=== PATIENT | female | born 1960 | race Caucasian/White ===

== ENCOUNTER 2019-09-29 13:24 | Emergency (ER) | payer OTHER, SELFPAY ==
[2019-09-29 13:29] VITALS: BP 156/87; PULSE 64; RESP 18; TEMP 36.1; O2SAT 97
--- NOTE | 2019-09-29 13:41 | ED.GENADUL_ITS ---
Discharge Plan Disposition Patient Disposition: HOME Condition: Stable Discharge Details Chief Complaint: GenMedical Clinical Impression: Mass of palm Primary Care Provider: Miranda Rae ED Provider: Raul Romeo Home Meds and New Rx's Prescriptions: Continued atenolol 25 mg Tablet 25 mg PO DAILY RF: 0 multivitamin Tablet,Chewable 1 tab PO DAILY RF: 0 Discharge Instructions Additional Instructions: We will refer you for follow-up in orthopedic clinic. Please call the office at [phone] for an appointment time. Continue your regular medications. Return to the ER if you develop a fever, rapid swelling of the hand, or any other acute concern. Medical Decision Making 59-year-old female presents to the emergency department with 4 months of slow growing left hand palmar mass overlying the flexor tendon of the ring finger. Consider fibrous tendon sheath mass, ganglion cyst, must exclude other soft tissue mass of the hand. Screening x-ray obtained. No evidence of underlying bony mass or abnormality. I do feel she merits follow-up in orthopedic clinic for further delineation of the etiology of what is likely a tendon sheath growth. She understands plan for outpatient follow-up & consultation. HPI General Mode of arrival: ambulatory . Date/Time Provider Initiated Documentation: 09/29/19 13:24 . Limitations to Documentation: no limitations . Information obtained by: patient . History of Present Illness 59 year old F presents to the emergency department with the chief complaint of Left hand volar mass x4 months, described as mild, Quality is described as constant, and is localized to the left and upper extremity. Patient reports no radiation. Patient started experiencing this month(s) and it has been constant. No relieving factors improve symptom(s), No exacerbating factors reported . Patient notes other (No trauma); denies fever/chills and rash. Patient did receive the following treatments prior to arrival, none Related Data Home Medications Medication Instructions Recorded Confirmed atenolol 25 mg PO DAILY 09/29/19 09/29/19 multivitamin 1 tab PO DAILY 09/29/19 09/29/19 Allergies Allergy/AdvReac Type Severity Reaction Status Date / Time Penicillins Allergy Skin Rash Unverified 09/29/19 13:33 General Stated Complaint: GenMedical DONNIE: 4 Review of Systems Narrative: No fever, rash, no trauma. PFSH Social History Smoking/Tobacco Use Status: Never Alcohol Intake: current Alcohol Intake frequency: holidays/special occasions only Drug use: Never Substance use type: does not use Do you feel safe at home: Yes Do you feel safe in your relationship?: Yes Exam Narrative Exam Narrative: GEN: awake, alert, oriented 3. Pleasant, well groomed, interactive. HEAD: Normocephalic, atraumatic Extremity: Left hand palmar surface along the flexor tendon of the ring finger has a palpable mass. It is tender to palpation and causes flexion of the fingers. Patient's motor function is normal including normal ability to make the okay sign, cross long finger over index, touch thumb to pinky. Normal sensation throughout. Distal capillary refill is less than 2 seconds and on the affected extremity two-point discrimination is intact in the distal portions of all fingers at 1 cm. Neuro: Grossly normal neurologic exam, conversant, interactive. Psych: Speech fluent, thoughts congruent, affect normal Course Vital Signs Vital signs: Vital Signs Temperature 36.1 C L 09/29/19 13:29 Pulse 64 09/29/19 13:29 Respiratory Rate 18 09/29/19 13:29 Blood Pressure 156/87 H 09/29/19 13:29 Pulse Oximetry 97 09/29/19 13:29 Temperature 36.1 C L 09/29/19 13:29 Pulse 64 09/29/19 13:29 Respiratory Rate 18 09/29/19 13:29 Respiratory Effort Non-Labored 09/29/19 13:34 Blood Pressure 156/87 H 09/29/19 13:29 Blood Pressure Position Sitting 09/29/19 13:29 Pulse Oximetry 97 09/29/19 13:29 Oxygen Delivery Method Room Air 09/29/19 13:29 Oxygen Flow Rate 0 09/29/19 13:29 Pain Level 8 09/29/19 13:29
--- NOTE | 2019-09-29 13:45 | DI.RAD_ITS ---
EXAM: XR HAND RT COMPLETE INDICATION: flexor tendon mass. COMPARISON: No exams were available for comparison TECHNIQUE: 2D digital imaging was performed. FINDINGS: No fracture or dislocation is seen. Rings are noted on on the 3rd and 4th fingers. There is no evid ence bony destruction. No mass is visible. IMPRESSION: Negative right hand. DATA REPOSITORY: RADIATION DOSE DELIVERED:
--- NOTE | 2019-09-29 15:28 | DI.VRAD_ITS ---
PROCEDURE INFORMATION: Exam: XR Left Hand Exam date and time: 09/29/2019 1:50 PM Age: 59 years old Clinical indication: Mass or lump; Hand and other: Flexor tendon mass; TECHNIQUE: Imaging protocol: XR Left hand. Views: 3 or more views. COMPARISON: No relevant prior studies available. FINDINGS: Bones/joints: No significant bony or articular abnormality is identified. Soft tissues: The soft tissues appear grossly unremarkable. IMPRESSION: Unremarkable radiographic appearance of the left hand. May consider MRI to evaluate for soft tissue mass. Dictated and Authenticated by: Alex Sanford MD. Ordering:LILLY Carter MD
== END 2019-09-29 14:22 | disposition home or self-care (01) ==
LOC: ER 14:12
PROVIDERS: Emergency Provider Emergency Medicine; PCP Nurse Practitioner
DX: R22.31 Localized swelling, mass and lump, right upper limb (principal)
CPT/HCPCS: 99283; 73130

== ENCOUNTER 2020-09-02 03:40 | Outpatient (CLI) | payer OTHER, SELFPAY ==
[2020-09-02 13:08] LABS: CREATININE 0.7 mg/dL (0.55-1.02); Calculated LDL 118 mg/dL (<100); Cholesterol 200 mg/dL (<200); HDL Cholesterol 67 mg/dL (40-60); Potassium 4.2 mmol/L (3.5-5.1); Triglyceride 79 mg/dL (<150)
[2020-09-02 13:21] LABS: Hemoglobin A1C 5.4 % (<5.7)
== END 2020-09-02 03:41 | disposition home or self-care (01) ==
LOC: LOS 03:40
PROVIDERS: PCP Nurse Practitioner; Visit Provider Nurse Practitioner
DX: I10 Essential (primary) hypertension (principal); Z13.1 Encounter for screening for diabetes mellitus; Z13.6 Encounter for screening for cardiovascular disorders
CPT/HCPCS: 36415; 80061; 82565; 83036; 84132

== ENCOUNTER 2020-12-02 04:14 | Outpatient (CLI) | payer OTHER, SELFPAY ==
[2020-12-02 11:39] LABS: Source Nasal/Nares
[2020-12-02 18:49] LABS: COVID-19 PCR Negative (Negative)
== END 2020-12-02 04:15 | disposition home or self-care (01) ==
LOC: LBO 04:14
PROVIDERS: PCP Nurse Practitioner; Visit Provider Surgery
DX: Z20.822 Contact with and (suspected) exposure to COVID-19 (principal); Z01.818 Encounter for other preprocedural examination
CPT/HCPCS: 87635

== ENCOUNTER 2020-12-04 12:35 | Day surgery (SDC) | payer OTHER, SELFPAY ==
--- NOTE | 2020-12-04 12:21 | PDOC.DSDIS_ITS ---
Discharge Plan Disposition Patient Disposition: HOME Condition: Good Discharge Details Reason For Visit: colon scope Attending Provider: Bri Hung Primary Care Provider: Miranda Rae Home Meds and New Rx's Prescriptions: Continued lisinopril 20 mg tablet 20 mg PO DAILY Qty: 90 RF: 4 multivitamin Tablet,Chewable 1 tab PO DAILY RF: 0 Discontinued polyethylene glycol 3350 17 gram/dose powder 238 g PO ONCE Qty: 238 RF: 0 bisacodyl [Dulcolax (bisacodyl)] 5 mg tablet,delayed release (DR/EC) 5 mg PO ONCE Qty: 4 RF: 0 Discharge Instructions Additional Instructions: [facility] Colonoscopy Post- Op Instructions Instructions for Everyone who is given Anesthesia: For your safety, please do the following for the next twenty-four (24) hours: *Do Not operate a motor vehicle (car, truck, motorcycle, etc.) *Do Not drink alcoholic beverages or use any recreational drugs for the first 24 hours or while taking pain medications. The medications in your body may have a reaction that can be dangerous. *Do Not make any important decisions or sign any important papers. Findings: 4cm rectal mass-biopsy pending. Expect to have some bleeding. If you are having more bleeding than w/ a period or passing clots larger than your fist- please got to the ER. Avoid aspirin or ibuprofen/Naprosyn. Tylenol is ok. Follow up: Dr. Hung 3:30pm [facility] 1. No lifting over 20 pounds or strenuous activity for the first 24 hours after your procedure. After 24 hours there are no restrictions on your activity but you may feel fatigued for a few days. 2. After you arrive home you may have a light meal and return to your normal diet as you can tolerate it without feeling sick to your stomach. 3. You may have a bloated, gaseous feeling in your belly (abdomen) after a colonoscopy. Passing gas and belching will help. Walking or lying down on your left side with your knees flexed may relieve the discomfort. Call the office at [phone] (Office) or [phone] (Hospital) right away if you notice any of the following: a.Vomiting of blood or ?coffee ground stools?. b.Rectal bleeding 1Tbsp, blood clots or continuous bleeding. c.Severe belly (abdominal) pain. d.A hard distended belly (abdomen) and an inability to pass gas. 4. Please don?t expect to have a normal BM (bowel movement) for 2-3 days after your procedure. 5. If there are questions regarding the findings of your procedure, please contact your doctor 6. If you are unable to contact your doctor with a problem, contact the hospital at [phone]. 7. Continue all your regular medications unless directed otherwise. I understand the above instructions and have no questions. Signature of Patient or Adult Escort Name of Responsible Adult Escort Signature of Nurse Date/Time Activity:: as above Diet:: as above Discharge Orders Discharge Orders: Discharge Order (Routine); Ordered 12/03/20 Ordered By: Bri Hung DS: Diagnosis Discharge Diagnosis (1) Adenomatous polyps: Status: Acute (2) Rectal mass: Status: Acute
--- NOTE | 2020-12-04 12:25 | W.COLOREPORT ---
Date of service: 12/04/20 Time of Service: 12:25 Colonoscopy Report Date of procedure: 12/04/20 Pre-op diagnosis general: A. polyps Surgeon: Bri Hung Anesthesia Type: General:No Airway Complications: None Disposition: no change Prep: Miralax/Dulcolax Procedure Description: After informed consent was obtained the patient was taken to the procedure room and placed in a left decubitous position. Monitors were applied and a time out was done. The patients name, date of , procedure, allergies to medications and metal in their body was reviewed. The patient was then sedated. Once sedated and comfortable a rectal exam was done. External exam was normal. Internal exam revealed a normal sphincter tone and no palpable masses. The scope was then introduced and retrofelexed. No internal hemorrhoids were identified. The scope was then advanced to the cecum w/out difficulty. The TI and appendiceal orifice were identified. The prep was good. The scope was then slowly retracted over 20 minutes back into the rectum. There is a low lying mass at 4cm. It is about 4x2cm. Multiple bx were taken and fulgeration was attempted. I was not able to remove the lesion in its entirety. Gelfoam was palced. It dose bleed quite readily. The scope was removed and the patient was woken up and taken back to Same day surgery in stable condition. The patient tolerated the procedure well and there were no immediate complications. Follow up: The patient should follow up
[2020-12-04 12:50] VITALS: BP 179/90; PULSE 103; RESP 20; TEMP 36.5; O2SAT 99
[2020-12-04] MEDS: Lactated Ringers 1,000 ML 80 ML IV (13:01)
--- NOTE | 2020-12-04 13:06 | W.ANESPRE ---
General Info Date of Service Date Performed: 12/04/20 Height: 5 ft 2 in Weight: 87.5 kg Body Mass Index (BMI): 35.2 Surgical Procedure: Operation Date: 12/04/20 13:50 Proposed Procedures Side Surgeon p Saman Hung DO Meds Allergies and Home Medications Allergies Allergy/AdvReac Type Severity Reaction Status Date / Time Penicillins Allergy Intermediate Skin Rash Unverified 12/04/20 12:55 Home Medication Medication Instructions Recorded multivitamin 1 tab PO DAILY 09/29/19 lisinopril 20 mg tablet 20 mg PO DAILY #90 tab 09/11/20 bisacodyl 5 mg tablet,delayed 5 mg PO ONCE #4 tab 11/20/20 release Current Visit Medications: Current Medications Generic Name Dose Route Start Last Admin Trade Name Freq PRN Reason Stop Dose Admin Ringer's Solution 1,000 mls @ 80 mls/hr 12/04/20 06:00 12/04/20 13:01 IV 01/02/21 23:59 80 mls/hr INFUSION JEY Administration IV Miscellaneous Supplies 1 each 12/04/20 06:00 Iv Access IV 01/02/21 23:59 DIRECTED JEY Sodium Chloride 0 ml 12/04/20 06:00 Normal Saline Flush 10 Ml Syr IV 01/02/21 23:59 PRN PRN Sodium Chloride 0 ml 12/04/20 06:00 Normal Saline 10 Ml Vial IJ 01/02/21 23:59 DIRECTED PRN Sterile Water 0 ml 12/04/20 06:00 Water,Injection,Sterile 10 Ml Vial IJ 01/02/21 23:59 DIRECTED PRN PFSH Active Problems Active Problems: Problem Status Onset Code Adenomatous polyps D36.9 Difficulty swallowing R13.10 Situational depression Essential (primary) hypertension I10 Colon polyp K63.5 Left carpal tunnel syndrome G56.02 Dupuytren's contracture of left hand M72.0 Medical History Medical History Hepatitis C treated - virus free ? 2018 Surgical History Surgical History H/O colonoscopy H/O eye surgery H/O tubal ligation History of liver biopsy Tobacco Smoking/Tobacco Use Status: Never Passive smoking exposure: Yes Second hand exposure: Yes Alcohol Alcohol Intake: current Alcohol intake frequency: holidays/special occasions only Alcohol type: beer and wine Substance Use Substance use: Never Substance use type: does not use Vital Signs and Lab Results Vital Signs Most Recent Vital Signs in EMR: Most Recent Vital Signs Temp Pulse Resp BP Pulse Ox 36.5 C 103 H 20 179/90 H 99 12/04/20 12:50 12/04/20 12:50 12/04/20 12:50 12/04/20 12:50 12/04/20 12:50 Lab Results Blood Type / Crossmatch: No Data to Display Complete Blood Count: No Data to Display Complete Metabolic Panel: Potassium Level 4.2 mmol/L (3.5-5.1) 09/02/20 08:04 09/02/20 Creatinine 0.7 mg/dL (0.55-1.02) 09/02/20 08:04 09/02/20 Hemoglobin A1c 5.4 % (<5.7) 09/02/20 08:04 09/02/20 Liver Function Panel: No Data to Display Coagulation Panel: No Data to Display Cardiac Panel: No Data to Display Arterial Blood Gas: No Data to Display Venous Blood Gas: No Data to Display Pancreas Panel: No Data to Display Thyroid Panel: No Data to Display Infectious Disease: Coronavirus (COVID-19)(PCR) Negative (Negative) 12/02/20 11:09 12/02/20 Coronavirus 2019 Source Nasal/nares 12/02/20 11:09 12/02/20 Blood Cultures: No Data to Display Toxicology Panel: No Data to Display Anesthesia Assessment and Plan Anesthesia History Personal History: No History of Anesthesia Complications Family History: Other (Daughter had severe reaction to general anesthesia 2006 for Tubal ligation) Exercise Tolerance Exercise Tolerance: Metabolic Equivalents>4 Pertinent Negatives Pertinent Negatives: No Symptoms of GERD, No Major Cardiovascular Symptoms or Complaints, No Major Pulmonary Symptoms or Complaints and No History of CVA/TIA Cardiac & Pulmonary Exam Cardiac Exam: Normal S1/S2 Heart Sounds Pulmonary Exam: Clear Bilateral Breath Sounds Airway Exam Known Difficult Airway: No Mallampati Class: 2 Mouth Opening: Normal (> 3cm) Thyromental Distance: Greater than 3 cm Neck Range of Motion: Full ROM Neck Circumference: Normal Teeth Condition: Normal Dentition and Removable Dentures/Plates Upper ASA Classification ASA Score: ASA 2 Emergency Case?: No NPO Status NPO Status: NPO Clears >2 hours, Solids >8 hours Anesthesia Plan Anesthesia Technique: General Anesthesia Airway Planned: Natural Airway Monitors Used: Standard Monitors
[2020-12-04 13:12] VITALS: BMI 35.2
--- NOTE | 2020-12-04 13:40 | BOWEL_PTH ---
PATIENT: Amalia Barker LOC: [facility] U#:[id number] AGE/SX: 60/F ROOM: RE12/04/[address]: Bri Hung : 1960 BED: DIS: 12/04/2020 SPEC #: [id number] RECD: 12/04/20 16:56 STATUS: GABRIELLE RE #: [id number] REX: 12/04/20 13:[address]: Bri Hung DEPT: Surgical Specimen RECD BY: Selene Dceker ENTERED: 12/04/20 16:56 SP TYPE: Bowel OTHR DR: Miranda Rae, PhD HOT HEADER OPERATOR Tissues: 1 - BIOPSY BOWEL Procedures: GROSS AND MICRO LEVEL 4 Comments: [id number]
[2020-12-04 13:47] VITALS: BP 144/91; PULSE 75; RESP 18; TEMP 36; O2SAT 96
[2020-12-04] MEDS: Gelatin SPONGE 12-7 MM PKT 1 EACH TP (14:00)
[2020-12-04 14:05] VITALS: BP 143/77; PULSE 87; RESP 16; TEMP 36.7; O2SAT 100
--- NOTE | 2020-12-04 14:06 | W.ANESPOSTOP ---
Postoperative Evaluation Date, Time and Location Date Performed: 12/04/20 Time Performed: 14:06 Patient Location: Day Surgery Unit Vital Signs Most Recent Imported Vital Signs: Most Recent Vital Signs Temp Pulse Resp BP Pulse Ox 36.5 C 103 H 20 179/90 H 99 12/04/20 12:50 12/04/20 12:50 12/04/20 12:50 12/04/20 12:50 12/04/20 12:50 Most Recent Manually Entered Vital Signs: Adult Blood Pressure: 143/77 Heart Rate: 84 Respirations: 16 Oxygen Saturation (%): 98 Temperature (C): 36.7 C Pain Score (0-10 Scale): 0 Pain Score Most Recent Pain Score: Most Recent Pain Score Pain Level 0 12/04/20 12:50 Assessment Mental Status: Awake (Alert & Oriented to Patient Baseline) Airway and Respiratory Function: Patent airway with normal (patient baseline) respiratory exam Cardiovascular Function: Hemodynamically Stable Hydration Status: Adequately Hydrated Nausea & Vomiting: No Nausea or Vomiting Pain: Pt. Denies Any Pain Peripheral Nerve Block: Patient did not receive a nerve block
[2020-12-04 14:07] VITALS: BP 143/77; PULSE 84; RESP 16; TEMPC 36.7; O2SAT 98
[2020-12-04 14:36] VITALS: BP 172/93; PULSE 73; RESP 16; TEMP 36.4; O2SAT 100
[2020-12-04 14:40] LABS: Abs Immature Grans 0.01 10^3/uL (0.0-0.06); Absolute Basophil Count 0.02 10^3/uL (0.0-0.2); Absolute Lymphocyte Count 1.55 10^3/uL (1.2-3.4); Absolute Monocyte Count 0.39 10^3/uL (0.1-0.8); Absolute Neutrophil Count 3.76 10^3/uL (1.2-6.7); Basophils % 0.3; Eosinophils % 1.7; HCT 38.4 % (36.0-46.0); HGB 13.1 g/dL (11.2-15.7); Immature Grans % 0.2; Lymphocytes % 26.6; MCH 29.7 pg (27.0-33.0); MCHC 34.1 % (32.0-36.0); MCV 87.1 fL (80-95); MPV 9.2 fL (8.0-11.0); Monocytes % 6.7; Neutrophils % 64.5; Nucleated RBC 0 %; Platelet Count 200 10^3/uL (130-400); RBC 4.41 10^6/uL (3.93-5.22); RDW 12.2 % (11.7-14.6); RDW-SD 39.4 fL; WBC 5.83 10^3/uL (4.4-10.8)
[2020-12-04 14:56] LABS: Prothrombin Time 10.2 sec (9.3-11.0)
[2020-12-04 15:01] LABS: ALT 29 U/L (14-59); AST 33 U/L (15-37); Alkaline Phosphatase 51 U/L (46-116); Anion Gap 10.2 mmol/L (3-11); BUN 11 mg/dL (7-18); Bilirubin, Total 0.6 mg/dL (0.2-1.0); C-Reactive Protein 0.06 mg/dL (0.0-0.3); CO2 23.8 mmol/L (21.0-32.0); CREATININE 0.6 mg/dL (0.55-1.02); Calcium 9.3 mg/dL (8.5-10.1); Chloride 104 mmol/L (98-107); Glucose 88 mg/dL (74-106); Potassium 4.3 mmol/L (3.5-5.1); Sodium 138 mmol/L (136-145); Total Protein 7.8 g/dL (6.4-8.2)
--- NOTE | 2020-12-04 15:08 | W.ANESPOSTOP ---
Postoperative Evaluation Date, Time and Location Date Performed: 12/04/20 Time Performed: 15:08 Patient Location: Day Surgery Unit Vital Signs Most Recent Imported Vital Signs: Most Recent Vital Signs Temp Pulse Resp BP Pulse Ox 36.4 C L 73 16 172/93 H 100 12/04/20 14:36 12/04/20 14:36 12/04/20 14:36 12/04/20 14:36 12/04/20 14:36 Most Recent Vital Signs Temp Pulse Resp BP Pulse Ox 36.5 C 103 H 20 179/90 H 99 12/04/20 12:50 12/04/20 12:50 12/04/20 12:50 12/04/20 12:50 12/04/20 12:50 Pain Score Most Recent Pain Score: Most Recent Pain Score Pain Level 0 12/04/20 14:36 Assessment Mental Status: Awake (Alert & Oriented to Patient Baseline) Airway and Respiratory Function: Patent airway with normal (patient baseline) respiratory exam Cardiovascular Function: Hemodynamically Stable Hydration Status: Adequately Hydrated Nausea & Vomiting: No Nausea or Vomiting Pain: Pt. Denies Any Pain Peripheral Nerve Block: Patient did not receive a nerve block
[2020-12-04] MEDS: Omnipaque 350 MG/ML 100 ML BTL IJ (15:55)
[2020-12-04] MEDS: Normal Saline - Diluent 50 ML VIAL IV (15:56)
--- NOTE | 2020-12-04 16:09 | DI.CT_ITS ---
Exam(s) CT ABDOMEN PELVIS W EXAM: CT ABDOMEN PELVIS W CLINICAL HISTORY: 4cm rectal mass. TECHNIQUE: Imaging Protocol: Axial computed tomography images with coronal and sagittal reformatted images were created and reviewed CONTRAST MATERIAL: Intravenous: Omnipaque 100cc Oral: None COMPARISON: No exams were available for comparison FINDINGS: VISUALIZED LUNG BASES: There is a tiny 1-2 millimeters subpleural nodule in the posterior basal segme nt left lower lobe. No pleural effusions.. ABDOMEN: There is no ascites. LIVER: There are no focal hepatic lesions evident . GALLBLADDER/BILIARY: No obvious gallbladder pathology. CBD is not dilated. PANCREAS: No evidence of pancreatic mass nor dilatation of the pancreatic duct. SPLEEN: Spleen is not enlarged. No obvious intrasplenic lesions. Splenic and portal veins are paten t. ADRENALS: There are no significant adrenal masses. KIDNEYS:No cysts evident. No solid renal masses. No calculi nor hydronephrosis.. ABDOMINAL AORTA: Abdominal aorta is not enlarged. LYMPH NODES:There is no retroperitineal nor paraaortic adenopathy. ABDOMINAL WALL/GI: No evidence of significant anterior abdominal wall hernia. PELVIS: GI: No evidence of appendicitis.There is circumferential thickening of wall of the sigmoid over signi ficant length, probably an element of colitis pattern. In addition, there is a round 8 x 8 millimete r abnormal density in the mesentery adjacent to the sigmoid which may be a small walled-off diverticu lum from prox previous diverticulitis versus a small abscess.This is by distance of 3 ankita meters from the outer wall of the adjacent sigmoid. LYMPH NODES: There is no intrapelvic nor inguinal adenopathy. REPRODUCTIVE: Small 1 centimeter calcified exophytic fibroid noted off the fundus of the uterus. The re is a 2.4 x 1.2 cm cyst in the region of the left ovary inferior aspect. No free fluid in the depe ndent aspect of the pelvis evident. URINARY BLADDER: Diffuse thickening and stranding of the nondistended urinary bladder wall consistent with cystitis. OSSEOUS: No significant osseous lesions. Advanced disc space narrowing L4-5 level. IMPRESSION: 1. There is circumferential thickening of a large segment of the sigmoid and rectosigmoid, probably a n element of colitis. There is also a round 8 x 8 millimeter abnormal density in the mesentery locat ed 3 millimeters off the inferior aspect of the sigmoid which may be a walled-off diverticulum from p rior previous diverticulitis episode versus small abscess. There is no stranding in the fat around t his region. 2. There is 2.4 x 1.2 cm cyst off the inferior aspect of the left ovary. There is no free fluid in t he pelvis. 3. Small partially calcified 1 cm exophytic fibroid noted off the fundus of the uterus. 4. Diffuse thickening and stranding of the urinary bladder wall consistent with cystitis. Tiny nodule incidentally noted in the left lung base. Given the recent clinical history here follow- up chest CT scan may be in order. RADIATION DOSE DELIVERED: 1,591.47mGy.cm Total DLP DATA REPOSITORY: All CT scans at this facility are submitted to the National Radiology Data Registry (NRDR) Dose Index Registry (DIR) with the [employer] (ACR). RADIATION OPTIMIZATION: All CT scans at this facility use at least one of these dose optimization te chniques: automated exposure control; mA and/or kV adjustment per patient size (includes targeted exa ms where dose is matched to clinical indication); or iterative reconstruction.
--- NOTE | 2020-12-04 16:51 | DI.VRAD_ITS ---
PROCEDURE INFORMATION: Exam: CT Abdomen And Pelvis With Contrast; Liver Exam date and time: 12/04/2020 4:00 PM Age: 60 years old Clinical indication: Abnormal findings; Abnormal radiologic finding of the abdomen; Radiologic exam and body structure: Coloscopy; Patient HX: S/P colonoscopy - 4cm rectal mass TECHNIQUE: Imaging protocol: Computed tomography of the abdomen and pelvis with intravenous contrast. Exam focused on the liver. Radiation optimization: All CT scans at this facility use at least one of these dose optimization techniques: automated exposure control; mA and/or kV adjustment per patient size (includes targeted exams where dose is matched to clinical indication); or iterative reconstruction. Contrast material: OMNI 350; Contrast volume: 100 ml; Contrast route: INTRAVENOUS (IV); Other contrast: Oral, omnipaque 350, 900; COMPARISON: No relevant prior studies available. FINDINGS: Liver: Normal. No mass. Gallbladder and bile ducts: Normal. No calcified stones. No ductal dilation. Lungs: 3 mm nodule in the lateral segment of the left lower lobe (5/139). Pancreas: Normal. No ductal dilation. Spleen: Normal. No splenomegaly. Adrenals: Normal. No mass. Kidneys and ureters: Normal. No hydronephrosis. Stomach and bowel: Normal. No obstruction. No mucosal thickening. Intraperitoneal space: Unremarkable. No free air. No significant fluid collection. Lymph nodes: Unremarkable. No enlarged lymph nodes. Vasculature: Unremarkable. No abdominal aortic aneurysm. Bladder: 8 mm wall thickening in the bladder with pericystic stranding. Correlate with urinalysis to exclude cystitis. Reproductive: 3 cm left ovarian cyst. Six month follow-up is recommended. 9 mm exophytic uterine fundal fibroid. Bones/joints: Degenerative disc disease in the lower lumbar spine. Soft tissues: Unremarkable. IMPRESSION: 1. 8 mm wall thickening in the bladder with pericystic stranding. Correlate with urinalysis to exclude cystitis. 2. Pulmonary nodule.For patients at low risk (minimal or absent history of smoking and of other known risk factors), no routine follow-up is indicated. For patients at high risk (history of smoking or of other known risk factors), consider optional CT Chest at 12 months. (Reference: Kevin) REFERENCES: Kevin Wang et al. Guidelines for Management of Incidental Pulmonary Nodules Detected on CT Images: From the [employer]ner Society 2017. Radiology. 2017;284(1):2 the 28-243. Dictated and Authenticated by: Steven White MD. Ordering:JUSTUS Gregory MD
[2020-12-07 11:49] LABS: CEA 1.5 ng/mL (See Note)
== END 2020-12-04 16:23 | disposition home or self-care (01) ==
LOC: SUR 12:35
PROVIDERS: PCP Nurse Practitioner; Visit Provider Surgery
PROC: 0DJD8ZZ Inspection of Lower Intestinal Tract, Via Natural or Artificial Opening Endoscopic (ICD-10-PCS; CPT 45378; principal; 2020-12-04 13:45)
DX: Z12.11 Encounter for screening for malignant neoplasm of colon (principal); K62.89 Other specified diseases of anus and rectum; Z86.010 Personal history of colon polyps; Z80.0 Family history of malignant neoplasm of digestive organs
CPT/HCPCS: 45380; 80053; 88305; 74177; 82378; 85025; 85610; 86140; J3490

== ENCOUNTER 2021-11-30 02:15 | Outpatient (CLI) | payer BC, SELFPAY ==
[2021-11-30 16:24] LABS: ALT 28 U/L (14-59); AST 18 U/L (15-37); Albumin 4.1 g/dL (3.4-5.0); Alkaline Phosphatase 75 U/L (46-116); Anion Gap 8.8 mmol/L (3-11); BUN 10 mg/dL (7-18); Bilirubin, Total 0.3 mg/dL (0.2-1.0); CO2 27.2 mmol/L (21.0-32.0); CREATININE 0.8 mg/dL (0.55-1.02); Calcium 9.3 mg/dL (8.5-10.1); Chloride 104 mmol/L (98-107); Glucose 97 mg/dL (74-106); Potassium 4.1 mmol/L (3.5-5.1); Sodium 140 mmol/L (136-145); Total Protein 7.8 g/dL (6.4-8.2)
== END 2021-11-30 02:16 | disposition home or self-care (01) ==
LOC: LBO 02:15
PROVIDERS: PCP Nurse Practitioner; Visit Provider Nurse Practitioner
DX: I10 Essential (primary) hypertension (principal)
CPT/HCPCS: 36415; 80053

== ENCOUNTER 2021-12-29 09:34 | Emergency (ER) | payer BC, SELFPAY ==
[2021-12-29 09:38] VITALS: BP 152/68; PULSE 86; RESP 17; TEMP 36.2; O2SAT 98
--- NOTE | 2021-12-29 09:53 | ED.GENADUL_ITS ---
Discharge Plan Disposition Patient Disposition: HOME Condition: Stable Discharge Details Clinical Impression: Lumbago with sciatica, right side Primary Care Provider: Miranda Rae ED Provider: Tigist Chavez Home Meds and New Rx's Prescriptions: New cyclobenzaprine 10 mg tablet 10 mg PO TID PRN (Reason: muscle spasm) Qty: 10 0RF Continued cholecalciferol (vitamin D3) 25 mcg (1,000 unit) capsule 25 mcg PO DAILY lisinopril 20 mg tablet 20 mg PO DAILY Qty: 90 4RF multivitamin Tablet,Chewable 1 tab PO DAILY Discharge Instructions Instructions: Low Back Strain (ED) Additional Instructions: At this time x-rays show no significant change from previous findings. Urinalysis shows no evidence of UTI. Take the muscle relaxers as directed and keep your follow-up appointment. Follow up with primary care provider in 3-5 days. Return to ED sooner if any worsening or concerns. Increase oral fluids. Please take Tylenol or Ibuprofen with food every 4-6 hours as needed for pain and swelling. Stand Alone Forms: Work Release Referrals: Miranda Rae, AUTOMOTIVE SERVICE TECHNICIAN [Primary Care Provider] - 5 days Discharge Data Discharge Date/Time-TO BE ENTERED AT DEPARTURE: 12/29/21 12:03 Medical Decision Making 60-year-old female presents to the ER with chief complaint of right lower paraspinous tenderness which radiates into her right buttock down her right posterior leg. She is ambulatory upon arrival. She reports that she reached for a pen while at work and her leg went numb. She is currently undergoing work-up for possible rectal cancer and colon cancer has a anoscopy on 10 January. She does have a past medical history of degenerative joint disease also in the lumbar spine. She denies any saddle anesthesia no loss of bowel or bladder control. She does have a history of chronic bowel issues, hypertension, hepatitis C. On initial exam she does have intact sensation, gross motor movement positive straight leg test on the right, intact dorsiflexion pedal flexion She did take a gram of Tylenol prior to arrival morning. Lumbar Spine XR, will consider MRI or CT, Flexeril, UA ordered. Urinalysis shows no evidence of urinary tract infection no leukocytes no nitrites. EXAM:? XR LUMBAR SPINE COMPLETE CLINICAL HISTORY:? Lower Lumbar pain, Hx of Rectal CA TECHNIQUE:? COMPARISON:? No exams were available for comparison FINDINGS: Five views were obtained.? There is loss of disc space height at L4-5 and L5- S1.? There are prominent hypertrophic degenerative changes involving the endplates and facet joints at L4-5 and L5-S1 also noted.? There is no evidence of spondylolysis or spondylolisthesis.? There is no evidence of an erosive or destructive lesion or sclerotic lesion in the lumbar region. IMPRESSION: Degenerative changes as described above. 1156: Discussed x-ray results and urinalysis results, strict return instructions and red flags with patient and family who verbalized understanding. Offered stronger pain medication at this time patient declined. Muscle relaxer sent to pharmacy on file. Patient remained hemodynamically stable alert and oriented and ambulatory throughout her stay here. This text was generated using [employer] system, please disregard any oddities of phrase or misspellings. Medical Records Medical records reviewed: Yes I reviewed the patient's medical records. Lab Data Lab results reviewed: Yes I reviewed the patient's lab results. HPI General Mode of arrival: ambulatory . Date/Time Provider Initiated Documentation: 12/29/21 09:41 . Limitations to Documentation: no limitations . Information obtained by: patient, family, RN notes reviewed and old records reviewed . HPI Narrative: 61 year old female with a PMHX of Obesity Rectal CA, Depression, HTN presents to the ER with Right lower lumbar pain which radiates around to the RLQ after reaching for a pen while at work this am. She is ambulatory upon arrival to the ED, she c/o numbness to RLE which has resolved upon arrival. Related Data Home Medications Medication Instructions Recorded Confirmed multivitamin 1 tab PO DAILY 09/29/19 12/29/21 lisinopril 20 mg tablet 20 mg PO DAILY #90 tabs 09/22/21 12/29/21 cholecalciferol (vitamin D3) 25 25 mcg PO DAILY 11/23/21 12/29/21 mcg (1,000 unit) capsule cyclobenzaprine 10 mg tablet 10 mg PO TID PRN muscle spasm #10 12/29/21 tabs Previous Rx's Medication Instructions Recorded lisinopril 20 mg tablet 20 mg PO DAILY #90 tabs 09/22/21 cyclobenzaprine 10 mg tablet 10 mg PO TID PRN muscle spasm #10 12/29/21 tabs Allergies Allergy/AdvReac Type Severity Reaction Status Date / Time Penicillins Allergy Intermediate Skin Rash Unverified 12/29/21 09:42 General Stated Complaint: Nk/Back Pain DONNIE: 3 Review of Systems All systems reviewed & are unremarkable except as noted in HPI and below PFSH All Active Problems (Updated 12/29/21 @ 11:51 by Tigist Chavez) Lumbago with sciatica, right side (Acute) Obesity (BMI 30-39.9) (Acute) High grade dysplasia in colonic adenoma (Acute) 12/14/20- [place] [facility] [place] Rectal mass (Acute) 12/04/20 4cm from sphincters Adenomatous polyps (Acute) Situational depression (Acute) 2021: Stressors with mother- doing better now Essential (primary) hypertension (Acute) Medical History Dupuytren's contracture of left hand Hepatitis C treated - virus free ? 2017 Left carpal tunnel syndrome actually bilateral Surgical History H/O colonoscopy H/O eye surgery H/O tubal ligation History of colonoscopy with polypectomy (~12/04/20) History of liver biopsy History of rectal surgery (~02/05/21) Family History Mother Cancer Father , age 77 Heart disease Hypertension Cancer prostate Sister Depression Sister No problems noted. Brother , age 39 Heart disease at age 40 Hypertension Brother No problems noted. Social History Smoking/Tobacco Use Status: Never Second Hand Exposure: Yes Smoking risk assessment performed?: Yes Alcohol Intake: current Alcohol Intake frequency: holidays/special occasions only Alcohol type: beer and wine Drug use: Never Substance use type: does not use Household members: spouse Housing: house Communication Needs: None Do you need help understanding health information?: Rarely Pets and animals: Yes Pets and animals: dog(s) Do you think of yourself as: straight/heterosexual Current gender identity: female What is your relationship status?: How often do you talk on the phone with friends or family?: three or more times per week How often do you get together with friends or relatives?: three or more times per week How often do you attend hoahaoism or amish services?: decline to answer Do you belong to any clubs or organized social groups?: decline to answer Panel score (0-1 are the most socially isolated patients): 2 What type of physical activity do you participate in: walking Duration: > 90 minutes/day Frequency: 5-6 times per week Danielle/Mu-Ism: None Special danielle needs: No Seatbelt use: sometimes Helmet use: Yes Helmet use: always Drive intox or ride w/intox local delivery driver: No Do you feel safe at home: Yes Do you feel safe in your relationship?: Yes Exam Resp Effort & Inspection: normal respiratory effort and able to speak in complete sentences Auscultation: clear to auscultation bilaterally Cardio Rate: regular rate Heart Sounds: S1 normal and S2 normal Back/Spine/Pelvis Back: no CVA tenderness Cervical Spine: normal cervical lordosis and cervical ROM normal Thoracic/Lumbar Spine: thoracic and lumbar spine normal to inspection, paraspinal tenderness (Right side), lumbar spinal tenderness and straight leg raise positive Pelvis: buttock tenderness on the right Course Vital Signs Vital signs: Vital Signs Temperature 36.2 C L 12/29/21 09:38 Pulse 86 12/29/21 09:38 Respiratory Rate 17 12/29/21 09:38 Blood Pressure 152/68 H 12/29/21 09:38 Pulse Oximetry 98 12/29/21 09:38 Temperature 36.2 C L 12/29/21 09:38 Temperature Source Temporal Artery Scan 12/29/21 09:38 Pulse 86 12/29/21 09:38 Respiratory Rate 17 12/29/21 09:38 Respiratory Effort Non-Labored 12/29/21 09:41 Blood Pressure 152/68 H 12/29/21 09:38 Blood Pressure Position Sitting 12/29/21 09:38 Pulse Oximetry 98 12/29/21 09:38 Oxygen Delivery Method Room Air 12/29/21 09:38 Oxygen Flow Rate 0 12/29/21 09:38 Pain Level 9 12/29/21 09:38
[2021-12-29 10:04] LABS: Bilirubin Negative (Negative); Blood Negative (Negative); Clarity Clear (Clear); Glucose Negative (Negative); Ketones Negative (Negative); Leukocyte Esterase Negative (Negative); Nitrite Negative (Negative); Specific Gravity 1.025 (1.005-1.025); Urobilinogen 0.2 EU/dL (Up TO 0.2)
[2021-12-29] MEDS: Cyclobenzaprine 10 MG TAB PO (10:21)
[2021-12-29] MEDS: Lidocaine 5% Patch 1 PATCH TP (10:21)
[2021-12-29] MEDS: Cyclobenzaprine 10 MG TAB, 3 TABS/BTL PO (11:00)
--- NOTE | 2021-12-29 11:20 | DI.RAD_ITS ---
Exam(s) XR LUMBAR SPINE COMPLETE EXAM: XR LUMBAR SPINE COMPLETE CLINICAL HISTORY: Lower Lumbar pain, Hx of Rectal CA TECHNIQUE: COMPARISON: No exams were available for comparison FINDINGS: Five views were obtained. There is loss of disc space height at L4-5 and L5-S1. There are prominent hypertrophic degenerative changes involving the endplates and facet joints at L4-5 and L5-S1 also no rolanda. There is no evidence of spondylolysis or spondylolisthesis. There is no evidence of an erosive or destructive lesion or sclerotic lesion in the lumbar region. IMPRESSION: Degenerative changes as described above. RADIATION DOSE DELIVERED: Total DLP
== END 2021-12-29 12:03 | disposition home or self-care (01) ==
PROVIDERS: Emergency Provider Registered Nurse Emergency; PCP Nurse Practitioner
DX: M54.41 Lumbago with sciatica, right side (principal)
CPT/HCPCS: 99283; 72110; 81003

== ENCOUNTER 2022-01-11 10:01 | Day surgery (SDC) | payer BC, SELFPAY ==
--- NOTE | 2022-01-10 21:22 | W.COLOREPORT ---
Colonoscopy Report Date of procedure: 01/11/22 Pre-op diagnosis general: High-grade dysplasia and large flat villous adenoma of rectum/s/p exc '21 Post-op diagnosis procedure note: other (small polyps x2 ) Surgeon: Bri Hung Anesthesia Type: General:No Airway Estimated blood loss (mL): 1 Pathology: other Complications: None Disposition: same day Prep: Miralax/Dulcolax Retraction Time: 11 Procedure Description: After informed consent was obtained the patient was taken to the procedure room and placed in a left decubitous position. Monitors were applied and a time out was done. The patients name, date of , procedure, allergies to medications and metal in their body was reviewed. The patient was then sedated. Once sedated and comfortable a rectal exam was done. External exam was normal. Internal exam revealed a normal sphincter tone and no palpable masses. The scope was then introduced and retrofelexed. nO internal hemorrhoids were identified. The scope was then advanced to the cecum without difficulty. The TI and appendiceal orifice were identified. The prep was BB PS 3 in all segments for a total of 9.. The scope was then slowly retracted over 10 minutes back into the rectum. P 10 very small polyps removed at 40 cm. This is removed with a cold biopsy forcep. The area of the scar from her previous surgery is noted in the rectum and coming into the anal sphincters. At the 9 o'clock position there is a question of a small polyp versus some scar tissue. This area was removed, with a cold biting forcep. All specimen is retrieved and no bleeding is noted. She does have minor diverticula, confined to the sigmoid colon with no signs of active bleeding or infection. Patient tolerated procedure well without complication. The scope was removed and the patient was woken up and taken back to Same day surgery in stable condition. The patient tolerated the procedure well and there were no immediate complications. Follow up: The patient should follow up in 1-2 years, path pd, unless they develop changes in bowel habits or other new gastrointestinal complaints.
--- NOTE | 2022-01-10 21:23 | PDOC.DSDIS_ITS ---
Discharge Plan Disposition Patient Disposition: HOME Condition: Good Discharge Details Reason For Visit: Colon scope Attending Provider: Bri Hung Primary Care Provider: Miranda Rae Home Meds and New Rx's Prescriptions: No Action cholecalciferol (vitamin D3) 25 mcg (1,000 unit) capsule 25 mcg PO DAILY lisinopril 20 mg tablet 20 mg PO DAILY Qty: 90 4RF multivitamin Tablet,Chewable 1 tab PO DAILY cyclobenzaprine 10 mg tablet 10 mg PO TID PRN (Reason: muscle spasm) Qty: 10 0RF Discharge Instructions Additional Instructions: DSU Colonoscopy Post- Op Instructions Instructions for Everyone who is given Anesthesia: For your safety, please do the following for the next twenty-four (24) hours: *Do Not operate a motor vehicle (car, truck, motorcycle, etc.) *Do Not drink alcoholic beverages or use any recreational drugs for the first 24 hours or while taking pain medications. The medications in your body may have a reaction that can be dangerous. *Do Not make any important decisions or sign any important papers. Findings: x2 small polyps in rectum Few small diverticula Follow up: My office will send a letter in 2 to 3 weeks time detailing when we want you to repeat the colonoscopy; either 1 to 2 years time. 1. No lifting over 20 pounds or strenuous activity for the first 24 hours after your procedure. After 24 hours there are no restrictions on your activity but you may feel fatigued for a few days. 2. After you arrive home you may have a light meal and return to your normal diet as you can tolerate it without feeling sick to your stomach. 3. You may have a bloated, gaseous feeling in your belly (abdomen) after a colonoscopy. Passing gas and belching will help. Walking or lying down on your left side with your knees flexed may relieve the discomfort. Call the office at [phone] (Office) or [phone] (Hospital) right away if you notice any of the following: a.Vomiting of blood or ?coffee ground stools?. b.Rectal bleeding 1Tbsp, blood clots or continuous bleeding. c.Severe belly (abdominal) pain. d.A hard distended belly (abdomen) and an inability to pass gas. 4. Please don?t expect to have a normal BM (bowel movement) for 2-3 days after your procedure. 5. If there are questions regarding the findings of your procedure, please contact your doctor 6. If you are unable to contact your doctor with a problem, contact the hospital at [phone]. 7. Continue all your regular medications unless directed otherwise. I understand the above instructions and have no questions. Signature of Patient or Adult Escort Name of Responsible Adult Escort Signature of Nurse Date/Time Activity:: See above Diet:: See above Discharge Orders Discharge Orders: Discharge Order (Routine); Ordered 01/10/22 Ordered By: Bri Hung
[2022-01-11 10:20] VITALS: BP 149/96; PULSE 103; RESP 17; TEMP 36.6; O2SAT 100
[2022-01-11] MEDS: Lactated Ringers 1,000 ML 80 ML IV (10:56)
--- NOTE | 2022-01-11 11:01 | W.ANESPRE ---
General Info Date of Service Date Performed: 01/11/22 Height: 5 ft 3 in Weight: 90.3 kg Body Mass Index (BMI): 35.2 Surgical Procedure: Operation Date: 01/11/22 11:50 Proposed Procedure Side Surgeon p Colonoscopy w/Biopsy Bri Hung, Meds Allergies and Home Medications Allergies Allergy/AdvReac Type Severity Reaction Status Date / Time Penicillins Allergy Intermediate Skin Rash Unverified 01/11/22 10:17 Home Medication Medication Instructions Recorded multivitamin 1 tab PO DAILY 09/29/19 lisinopril 20 mg tablet 20 mg PO DAILY #90 tabs 09/22/21 cholecalciferol (vitamin D3) 25 25 mcg PO DAILY 11/23/21 mcg (1,000 unit) capsule cyclobenzaprine 10 mg tablet 10 mg PO TID PRN muscle spasm #10 12/29/21 tabs Current Visit Medications: Current Medications Generic Name Dose Route Start Last Admin Trade Name Freq PRN Reason Stop Dose Admin Hyoscyamine Sulfate 0.125 mg 01/10/22 11:27 Hyoscyamine 0.125 Mg Sl/Oral/Chew SL DIRECTED PRN Ringer's Solution 1,000 mls @ 80 mls/hr 01/11/22 06:00 01/11/22 10:56 IV 02/09/22 23:59 80 mls/hr INFUSION JEY Administration IV Miscellaneous Supplies 1 each 01/11/22 06:00 Iv Access IV 02/09/22 23:59 DIRECTED JEY Ondansetron HCl 4 mg 01/10/22 11:27 Ondansetron 4 Mg/2 Ml Vial IVP Q4H PRN PRN Nausea / Vomiting Sodium Chloride 0 ml 01/11/22 06:00 Normal Saline Flush 10 Ml Syr IV 02/09/22 23:59 PRN PRN Sodium Chloride 0 ml 01/11/22 06:00 Normal Saline 10 Ml Vial IJ 02/09/22 23:59 DIRECTED PRN Sterile Water 0 ml 01/11/22 06:00 Water,Injection,Sterile 10 Ml Vial IJ 02/09/22 23:59 DIRECTED PRN PFSH Active Problems Active Problems: Problem Status Onset Code Essential (primary) hypertension I10 Situational depression Adenomatous polyps D36.9 Rectal mass K62.89 High grade dysplasia in colonic adenoma D12.6 Obesity (BMI 30-39.9) E66.9 Lumbago with sciatica, right side M54.41 Medical History Medical History Dupuytren's contracture of left hand Hepatitis C treated - virus free ? 2018 Left carpal tunnel syndrome actually bilateral Medical History Comments:: pt. stated that her daughter had a severe complication from anesthesia Surgical History Surgical History (Updated 01/11/22 @ 10:17 by Gail Leon RN) H/O colonoscopy H/O eye surgery H/O tubal ligation History of colonoscopy with polypectomy (~12/04/20) History of liver biopsy History of rectal surgery (~02/05/21) Hx of tonsillectomy Tobacco Smoking/Tobacco Use Status: Never Passive smoking exposure: Yes Second hand exposure: Yes Alcohol Alcohol Intake: current Alcohol intake frequency: holidays/special occasions only Alcohol type: beer and wine Substance Use Substance use: Never Substance use type: does not use Vital Signs and Lab Results Vital Signs Most Recent Vital Signs in EMR: Most Recent Vital Signs Temp Pulse Resp BP Pulse Ox 36.6 C 103 H 17 149/96 H 100 01/11/22 10:20 01/11/22 10:20 01/11/22 10:20 01/11/22 10:20 01/11/22 10:20 Lab Results Blood Type / Crossmatch: No Data to Display Complete Blood Count: No Data to Display Complete Metabolic Panel: No Data to Display Liver Function Panel: No Data to Display Coagulation Panel: No Data to Display Cardiac Panel: No Data to Display Arterial Blood Gas: No Data to Display Venous Blood Gas: No Data to Display Pancreas Panel: No Data to Display Thyroid Panel: No Data to Display Infectious Disease: No Data to Display Blood Cultures: No Data to Display Toxicology Panel: No Data to Display Anesthesia Assessment and Plan Anesthesia History Personal History: No History of Anesthesia Complications Family History: Other Exercise Tolerance Exercise Tolerance: Metabolic Equivalents>4 Pertinent Negatives Pertinent Negatives: No Symptoms of GERD Cardiac & Pulmonary Exam Cardiac Exam: Normal S1/S2 Heart Sounds Pulmonary Exam: Clear Bilateral Breath Sounds Implantable Cardiac Device Does patient have a Pacemaker or an ICD?: No Airway Exam Known Difficult Airway: No Mallampati Class: 2 Mouth Opening: Normal (> 3cm) Thyromental Distance: Greater than 3 cm Neck Range of Motion: Full ROM Neck Circumference: Normal Teeth Condition: Normal Dentition ASA Classification ASA Score: ASA 2 Emergency Case?: No NPO Status NPO Status: NPO Clears >2 hours, Solids >8 hours Anesthesia Plan Resuscitation Status: Full Code Anesthesia Technique: General Anesthesia Airway Planned: Natural Airway Monitors Used: Standard Monitors
[2022-01-11 11:03] VITALS: BMI 35.2
--- NOTE | 2022-01-11 13:29 | BOWEL_PTH ---
PATIENT: Amalia Barker LOC: [facility] U#:[id number] AGE/SX: 61/F ROOM: RE01/11/[address]: Bri Hung : 1960 BED: DIS: 01/11/2022 SPEC #: [id number] RECD: 01/11/22 17:07 STATUS: GABRIELLE RE #: [id number] REX: 01/11/22 13:[address]: Bri Hung DEPT: Surgical Specimen RECD BY: Selene Decker ENTERED: 01/11/22 17:08 SP TYPE: Bowel OTHR DR: Miranda Rae, PhD SUPERVISOR GRIPS Tissues: 1 - BIOPSY BOWEL 2 - BIOPSY BOWEL Procedures: GROSS AND MICRO LEVEL 4 Comments: [id number]
[2022-01-11 13:41] VITALS: BP 123/67; PULSE 80; RESP 16; TEMP 36.4; O2SAT 98
--- NOTE | 2022-01-11 13:58 | W.ANESPOSTOP ---
Postoperative Evaluation Date, Time and Location Date Performed: 01/11/22 Time Performed: 13:58 Patient Location: Day Surgery Unit Vital Signs Most Recent Imported Vital Signs: Most Recent Vital Signs Temp Pulse Resp BP Pulse Ox 36.4 C L 80 16 123/67 98 01/11/22 13:41 01/11/22 13:41 01/11/22 13:41 01/11/22 13:41 01/11/22 13:41 Pain Score Most Recent Pain Score: Most Recent Pain Score Pain Level 0 01/11/22 13:41 Assessment Mental Status: Awake (Alert & Oriented to Patient Baseline) Airway and Respiratory Function: Patent airway with normal (patient baseline) respiratory exam Cardiovascular Function: Hemodynamically Stable Hydration Status: Adequately Hydrated Nausea & Vomiting: No Nausea or Vomiting Pain: Pt. Denies Any Pain Peripheral Nerve Block: Patient did not receive a nerve block
[2022-01-11 14:07] VITALS: BP 141/71; PULSE 74; RESP 18; TEMP 36.3; O2SAT 99
== END 2022-01-11 14:27 | disposition home or self-care (01) ==
PROVIDERS: PCP Nurse Practitioner; Visit Provider Surgery
PROC: 0DJD8ZZ Inspection of Lower Intestinal Tract, Via Natural or Artificial Opening Endoscopic (ICD-10-PCS; CPT 45378; principal; 2022-01-11 11:45)
DX: Z09 Encounter for follow-up examination after completed treatment for conditions other than malignant neoplasm (principal); K63.5 Polyp of colon; K62.1 Rectal polyp; Z86.010 Personal history of colon polyps; E66.9 Obesity, unspecified; I10 Essential (primary) hypertension; M54.40 Lumbago with sciatica, unspecified side; K57.30 Diverticulosis of large intestine without perforation or abscess without bleeding
CPT/HCPCS: 45380; 88305

== ENCOUNTER 2022-12-16 02:10 | Outpatient (CLI) | payer BC, SELFPAY ==
[2022-12-16 12:14] LABS: HCT 38.1 % (36.0-46.0); HGB 12.6 g/dL (11.2-15.7); MCH 29.5 pg (27.0-33.0); MCHC 33.1 % (32.0-36.0); MCV 89 fL (80-95); MPV 10.4 fL (8.0-11.0); Platelet Count 220 10^3/uL (130-400); RBC 4.27 10^6/uL (3.93-5.22); RDW 12.7 % (11.7-14.6); RDW-SD 41.8 fL; WBC 4.33 10^3/uL (4.4-10.8)
[2022-12-16 12:51] LABS: ALT 26 U/L (14-59); AST 17 U/L (15-37); Albumin 3.9 g/dL (3.4-5.0); Alkaline Phosphatase 67 U/L (46-116); Anion Gap 9.6 mmol/L (3-11); BUN 14 mg/dL (7-18); Bilirubin, Total 0.4 mg/dL (0.2-1.0); CO2 27.4 mmol/L (21.0-32.0); CREATININE 0.8 mg/dL (0.55-1.02); Calcium 9.5 mg/dL (8.5-10.1); Calculated LDL 126 mg/dL (<100); Chloride 106 mmol/L (98-107); Cholesterol 202 mg/dL (<200); Estimated GFR 82.23 (mL/min/1.73m2); Glucose 94 mg/dL (74-106); HDL Cholesterol 61 mg/dL (40-60); Potassium 4.1 mmol/L (3.5-5.1); Sodium 143 mmol/L (136-145); TSH (W/Ref FT4) 2.35 uIU/mL (0.36-3.74); Total Protein 7.6 g/dL (6.4-8.2); Triglyceride 79 mg/dL (<150)
== END 2022-12-16 02:11 | disposition home or self-care (01) ==
LOC: LOS 02:10
PROVIDERS: PCP Nurse Practitioner Family; Visit Provider Nurse Practitioner Family
DX: Z00.00 Encounter for general adult medical examination without abnormal findings (principal); I10 Essential (primary) hypertension; E66.9 Obesity, unspecified; F32.89 Other specified depressive episodes
CPT/HCPCS: 36415; 80053; 80061; 85027; 84443

== ENCOUNTER 2023-12-22 02:27 | Outpatient (CLI) | payer BC, SELFPAY ==
[2023-12-22 13:02] LABS: HCT 38.8 % (36.0-46.0); HGB 12.6 g/dL (11.2-15.7); MCH 29.4 pg (27.0-33.0); MCHC 32.5 % (32.0-36.0); MCV 90 fL (80-95); MPV 9.7 fL (8.0-11.0); Platelet Count 214 10^3/uL (130-400); RBC 4.29 10^6/uL (3.93-5.22); RDW 12.8 % (11.7-14.6); WBC 5.29 10^3/uL (4.4-10.8)
[2023-12-22 13:20] LABS: Anion Gap 3.6 mmol/L (3-11); BUN 14 mg/dL (7-18); CO2 29.4 mmol/L (21.0-32.0); CREATININE 0.8 mg/dL (0.55-1.02); Calcium 9.6 mg/dL (8.5-10.1); Calculated LDL 104 mg/dL (<100); Chloride 106 mmol/L (98-107); Cholesterol 190 mg/dL (<200); Estimated GFR 81.72 (mL/min/1.73m2); Glucose 96 mg/dL (74-106); HDL Cholesterol 61 mg/dL (40-60); Potassium 4.3 mmol/L (3.5-5.1); Sodium 139 mmol/L (136-145); Triglyceride 127 mg/dL (<150)
[2023-12-22 13:21] LABS: Hemoglobin A1C 5.8 % (<5.7)
[2023-12-22 13:44] LABS: NT-proBNP 32 pg/mL (<300)
== END 2023-12-22 02:28 | disposition home or self-care (01) ==
LOC: LOS 02:27
PROVIDERS: PCP Nurse Practitioner Family; Visit Provider Nurse Practitioner Family
DX: I10 Essential (primary) hypertension (principal)
CPT/HCPCS: 36415; 80048; 80061; 85027; 83036; 83880

== ENCOUNTER → 2024-01-04 01:38 | Outpatient (CLI) | payer BC, SELFPAY ==
--- NOTE | 2024-01-04 07:30 | DI.NM_ITS ---
APPROVED REPORT Exam: Pharmacologic Patient Location: Out-Patient Room/Bed: Stress Nurse: Earlene Loredo RN and Leanna Crowder RN Ordering Provider:JOSS HODGSON, Contact Number: [phone] BMI: 36.66 Baseline Rhythm: Sinus Rhythm Comment: First Degree AV Block. Indications: Chest pressure with radiation; Left jaw pain Medical History Medical History: Situational Depression; Obesity; Hypertension; Hep. C - treated; Chest Pressure. Cardiac Medications: Lisinopril. Allergies: Lisinopril; Penicillins. Cardiac Risk Factors: Family History; Hypertension; Obesity. Previous Cardiac Procedures: None. Pretest Chest Pain Characteristics: None. Exercise History: Sedentary. Physical Disabilities: History of chronic back pain r/t previous accident. Lung Sounds: Clear bilaterally throughout, anterior and posterior. Heart Sounds: S1/S2. Stress Test Details Test: Pharmacologic stress was paired with low level exercise. Reason for pharmacologic stress test: Per provider order; Pt. also reports history of chronic back pain r/t previous accident.. Nuclear Acquisition: Rest Tc-99m/Stress Tc-99m 1 day Rest Isotope: Tc-99m Sestamibi. Dose: 10.0 Date: 01/04/2024 Injection Time: 1115 Stress Isotope: Tc-99m Sestamibi. Dose: 31.0 Date: 01/04/2024 Injection Time: 1235 HR Resting HR Supine: 83 bpm Max Heart Rate (APMHR): 155.041732 bpm Resting HR Standin bpm Target HR (85% APMHR): 131.304227 bpm Max HR Achieved: 154 bpm % of APMHR: 99.35 Recovery HR: 97 bpm HR response to stress: Accelerated HR response to stress BP Resting BP Supine: 130/80 mmHg Resting BP Standin/80 mmHg Max BP: 180/78 mmHg Recovery BP: 126/60 mmHg BP response to stress: Normal blood pressure response to stress. ECG Resting ECG: Sinus Rhythm, 1st degree AV block Ectopy: None. Stress ECG: Sinus Tachycardia ST Change: No significant ST segment changes noted Arrhythmia: None. Recovery ECG: Sinus Rhythm Recovery ST Change: No significant ST segment changes noted Recovery Arrhythmia: None. Clinical Reason for Termination: Target HR Achieved Stress Symptoms: None. Exercise duration: 4 min0 sec Highest Stage Reached: Walking lexiscan; pt. achieved THR. Exercise capacity: 1.38 METs Angina Score: None Smith Treadmill Score: 3.6 Rate Pressure Product: 40253 Stress ECG Conclusion 1. Resting electrocardiogram was normal 2. Patient underwent testing using a combination of low-level exercise and pharmacologic stress with regadenoson 3. She completed a workload of 1.38 METS and achieved 99% of predicted heart rate for age 4. There was no electrocardiographic evidence of myocardial ischemia 5. There were no dysrhythmias 6. See MPI report Smith Treadmill Score is 3.6 which is Moderate risk. Stress Test Summary STAGE HR BP SpO2 Symptoms NOTES Supine 83 130/80 96 Standing 85 142/80 1 min post Lexiscan injection 152 170/90 3 min post Lexiscan injection 124 180/78 6 min post Lexiscan injection 113 146/68 98 9 min post Lexiscan injection 97 126/60 95 MPI Conclusion Myocardial perfusion is normal. There is no ischemia or evidence of prior infarction Ejection fraction is 71% with normal wall motion Radiologist Interpretation Radiologist agrees with Stock Selector's Interpretation. Radiologist Interpretation by: Joss Gonzalez MD Interpretation Date/Time: 01/04/2024 19:08:31
--- NOTE | 2024-01-04 07:30 | DI.DEXA_ITS ---
Exam(s) XR DEXA BONE DENSITY W/WO SP EXAM: XR DEXA BONE DENSITY W/WO SP CLINICAL HISTORY: screening, POSTMENOPAUSAL STATUS, Z78.0- TECHNIQUE: Routine DEXA evaluation of the lumbar spine, hip, or forearm. COMPARISON: No exams were available for comparison FINDINGS: Performed on a Hologic unit. Lateral image: No compression fracture evident. Lumbar Spine total T-score: -0.8 Hip total T-score:-0.8 Independent reading at the level of the femoral neck yields T-score of -1.5 Forearm total T-score: -0.2 IMPRESSION: Bone mineral density measures in the normal-mild osteopenia range. Fracture risk is low-moderate Note: Any spine fracture indicates 5x risk for subsequent spine fracture and 2x risk for subsequent h ip fracture. World Health Organization criteria for BMD interpretation classify patients: Normal...... T- Score at or above -1.0 Osteopenic... T- Score between -1.0 and -2.5 Osteoporosis... T-Score at or below -2.5
[2024-01-04] MEDS: Regadenoson 0.4 MG/5 ML SYR IVP (12:34)
== END ==
PROVIDERS: PCP Nurse Practitioner Family; Visit Provider Nurse Practitioner Family
DX: Z78.0 Asymptomatic menopausal state (principal); R07.89 Other chest pain
CPT/HCPCS: 77080; 78452; 93017; J2785

== ENCOUNTER 2024-06-07 08:42 | Day surgery (SDC) | payer BC, SELFPAY ==
--- NOTE | 2024-06-06 15:34 | PDOC.DSDIS_ITS ---
Date of service: 06/07/24 Time of Service: 11:16 Discharge Plan Disposition Patient Disposition: Home Condition: Good Discharge Details Reason For Visit: colon scope Attending Provider: Bri Hung Primary Care Provider: Marilyn Stacy Home Meds and New Rx's Prescriptions: No Action cholecalciferol (vitamin D3) 25 mcg (1,000 unit) capsule 25 mcg PO DAILY ascorbic acid (vitamin C) 500 mg capsule 500 mg PO DAILY omeprazole 20 mg tablet,delayed release (DR/EC) 20 mg PO DAILY Qty: 90 1RF psyllium husk [Fiber (psyllium husk)] 0.52 gram capsule 0.52 g PO BID Qty: 60 12RF lisinopril 30 mg tablet 30 mg PO DAILY Qty: 90 3RF Discharge Instructions Additional Instructions: [facility] Colonoscopy Post- Op Instructions Instructions for Everyone who is given Anesthesia: For your safety, please do the following for the next twenty-four (24) hours: *Do Not operate a motor vehicle (car, truck, motorcycle, etc.) *Do Not drink alcoholic beverages or use any recreational drugs for the first 24 hours or while taking pain medications. The medications in your body may have a reaction that can be dangerous. *Do Not make any important decisions or sign any important papers. Findings: Large polyp in the cecum. This was removed today. Due to the size of the polyp, I do want a repeat the colonoscopy in 1 years time Start psyllium daily. Start w/ one a day per week. You can work up to 8/day Follow up: Follow-up in 2 to 3 weeks for removal of the lesion from back of left thigh 1. No lifting over 20 pounds or strenuous activity for the first 24 hours after your procedure. After 24 hours there are no restrictions on your activity but you may feel fatigued for a few days. 2. After you arrive home you may have a light meal and return to your normal diet as you can tolerate it without feeling sick to your stomach. 3. You may have a bloated, gaseous feeling in your belly (abdomen) after a colonoscopy. Passing gas and belching will help. Walking or lying down on your left side with your knees flexed may relieve the discomfort. Call the office at [phone] (Office) or [phone] (Hospital) right away if you notice any of the following: a.Vomiting of blood or ?coffee ground stools?. b.Rectal bleeding 1Tbsp, blood clots or continuous bleeding. c.Severe belly (abdominal) pain. d.A hard distended belly (abdomen) and an inability to pass gas. 4. Please don?t expect to have a normal BM (bowel movement) for 2-3 days after your procedure. 5. If there are questions regarding the findings of your procedure, please contact your doctor 6. If you are unable to contact your doctor with a problem, contact the hospital at [phone]. 7. Continue all your regular medications unless directed otherwise. I understand the above instructions and have no questions. Signature of Patient or Adult Escort Name of Responsible Adult Escort Signature of Nurse Date/Time Stand Alone Forms: Anesthesia Discharge Inst., Kayla Benedict ([facility]) Referrals: Bri Hung DO [OSTEOPATHIC DOCTOR] - Activity:: see above Diet:: see above Discharge Orders Discharge Orders: Discharge Order (Routine); Ordered 06/07/24 Ordered By: Bri Hung Discharge Data Discharge Date/Time-TO BE ENTERED AT DEPARTURE: 11/08/24 12:00 Discharge Comment: pt d/c from [facility] DS: Diagnosis Discharge Diagnosis (1) Essential (primary) hypertension: Status: Acute (2) Obesity (BMI 30-39.9): Status: Acute (3) Acid reflux: Status: Chronic (4) History of rectal surgery: Asessment and Plan: The patient is seen and examined after their colonoscopy.? The patient has been able to pass gas.? They are not having abdominal pain.? They have been able to tolerate liquids and a snack.? They do not have any nausea or vomiting.? They are not having any chest pain or shortness of breath.??? They are not having any rectal bleeding. Their vital signs have been stable-see nursing notes. We discussed findings during their colonoscopy, and any biopsies that were done/polyps that were removed. The patient will be sent a letter with any biopsy results, and when to repeat the colonoscopy.-see discharge instructions. Patient was given explicit instructions to follow-up regarding colonoscopy-refer to discharge instructions.? We reviewed resumption of medications. Patient verbalized understanding and discharged in stable and satisfactory condition- See nursing notes.
--- NOTE | 2024-06-06 15:34 | W.COLOREPORT ---
Date of service: 06/07/24 Time of Service: 11:11 Colonoscopy Report Date of procedure: 06/07/24 Pre-op diagnosis general: hx of rectal cacner Post-op diagnosis procedure note: other (polyp) Surgeon: Bri Hung Anesthesia Type: General:No Airway Estimated blood loss (mL): 2 Pathology: other Complications: None Disposition: same day Prep: Miralax/Dulcolax Retraction Time: 14 Procedure Description: After informed consent was obtained, explaining risks of the procedure, including but not limits to: bleeding, infections, complications of anesthesia, perforations (which may require antibiotics and /or surgery and stay in the hospital), and abdominal pain/cramping. The patient was taken to the procedure room and placed in a left decubitous position. Monitors were applied and a time out was done. The patients name, date of , procedure, allergies to medications and metal in their body was reviewed. The patient was then sedated. Once sedated and comfortable a rectal exam was done. External exam was normal. Internal exam revealed a normal sphincter tone and no palpable masses. The previously lubricated Olympus scope was then introduced (see RN notes for scope number) and retrofelexed. No internal hemorrhoids were identified. The scope was then advanced to the cecum without difficulty. The TI and appendiceal orifice were identified. The scope was then slowly retracted over 14 minutes back into the rectum. Polyps: A flat, 1.5cm polyp was found in the cecum. This was removed with a cold biting forceps. All of the specimen was retrieved. This will be sent to pathology. There is no bleeding noted from the polypectomy site. Diverticula: None the mucosa is pink and healthy w/ a normal vascular pattern. The area of scar in the rectum is visualized from where she had the rectal cancer. There is no signs of any recurrence. The scope was removed, and the patient was woken up and taken back to Same day surgery in stable condition. The patient tolerated the procedure well and there were no immediate complications. Follow up: The patient should follow up in1 years, unless they develop changes in bowel habits or other new gastrointestinal complaints. Dutch John Bowel Prep Dutch John Bowel Prep Right Colon: 3 Left Colon: 3 Transverse Colon: 3 Total Score: 9
--- NOTE | 2024-06-06 17:07 | W.ANESPRE ---
General Info Date of Service Date Performed: 06/07/24 Height: 5 ft 3 in Weight: 96.162 kg Body Mass Index (BMI): 37.5 Surgical Procedure: Operation Date: 06/07/24 10:50 Proposed Procedure Side Surgeon chase Hung, Meds Allergies and Home Medications Allergies Allergy/AdvReac Type Severity Reaction Status Date / Time Penicillins Allergy Intermediate Skin Rash Verified 06/07/24 09:34 Home Medication ?Medication ?Instructions ?Recorded cholecalciferol (vitamin D3) 25 25 mcg PO DAILY 11/23/21 mcg (1,000 unit) capsule ascorbic acid (vitamin C) 500 mg 500 mg PO DAILY 12/19/23 capsule lisinopril 30 mg tablet 30 mg PO DAILY #90 tabs 02/29/24 omeprazole 20 mg tablet,delayed 20 mg PO DAILY #90 tabs 03/26/24 release Current Visit Medications: Current Medications Generic Name Dose Route Start Last Admin Trade Name Freq PRN Reason Stop Dose Admin Hyoscyamine Sulfate 0.125 mg 06/07/24 03:16 Hyoscyamine 0.125 Mg Sl/Oral/Chew SL 07/07/24 03:15 DIRECTED PRN IV Miscellaneous Supplies 1 each 06/06/24 15:30 Iv Access IV 07/06/24 15:29 DIRECTED JEY Ondansetron HCl 4 mg 06/06/24 15:16 Ondansetron 4 Mg/2 Ml Vial IVP 07/06/24 15:15 Q4H PRN PRN Sodium Chloride 0 ml 06/06/24 15:16 Normal Saline Flush 10 Ml Syr IVP 07/06/24 15:15 PRN PRN Sodium Chloride 0 ml 06/06/24 20:00 Normal Saline Flush 10 Ml Syr IVP 07/06/24 19:59 BID JEY Sodium Chloride 0 ml 06/06/24 15:16 Normal Saline 10 Ml Vial IJ 07/06/24 15:15 DIRECTED PRN Sterile Water 0 ml 06/07/24 06:00 Water,Injection,Sterile 10 Ml Vial IJ 07/06/24 23:59 DIRECTED PRN PFSH Active Problems Active Problems: Problem Status Onset Code History of rectal cancer Acute Z85.048 Acid reflux Chronic K21.9 Lower extremity edema Acute R60.0 Chest pressure Acute R07.89 Essential (primary) hypertension Acute I10 Situational depression Acute Obesity (BMI 30-39.9) Acute E66.9 Medical History Medical History High grade dysplasia in colonic adenoma 12/14/20- referred to [facility] endoscopic ultrasound Rectal mass 12/04/20 4cm from sphincters Adenomatous polyps Hepatitis C treated - virus free ? 2018 Left carpal tunnel syndrome actually bilateral Dupuytren's contracture of left hand Medical History Comments:: pt. stated that her daughter had a severe complication from anesthesia-daughter went in for tubal ligation and ended up dying on the table and they brought her back, states she went to [facility] to be tested and she was allergic to all three components of anesthesia Surgical History Surgical History Hx of tonsillectomy History of rectal surgery (~02/05/21) History of colonoscopy with polypectomy (~12/04/20) History of liver biopsy H/O tubal ligation H/O eye surgery H/O colonoscopy Tobacco Smoking/Tobacco Use Status: Never Passive smoking exposure: Yes Second hand exposure: Yes Alcohol Alcohol Intake: current Alcohol intake frequency: a few times a month Alcohol type: beer and hard liquor Substance Use Substance use: Never Substance use type: does not use Vital Signs and Lab Results Vital Signs Most Recent Vital Signs in EMR: Temp Pulse Resp BP Pulse Ox 36.4 C L 98 H 16 159/84 H 97 06/07/24 09:27 06/07/24 09:27 06/07/24 09:27 06/07/24 09:27 06/07/24 09:27 Lab Results Blood Type / Crossmatch: No Data to Display Complete Blood Count: No Data to Display Complete Metabolic Panel: No Data to Display Liver Function Panel: No Data to Display Coagulation Panel: No Data to Display Cardiac Panel: No Data to Display Arterial Blood Gas: No Data to Display Venous Blood Gas: No Data to Display Pancreas Panel: No Data to Display Thyroid Panel: No Data to Display Infectious Disease: No Data to Display Blood Cultures: No Data to Display Toxicology Panel: No Data to Display Anesthesia Assessment and Plan Anesthesia History Personal History: No History of Anesthesia Complications Family History: Other Exercise Tolerance Exercise Tolerance: Metabolic Equivalents>4 Cardiac & Pulmonary Exam Cardiac Exam: Normal S1/S2 Heart Sounds Pulmonary Exam: Clear Bilateral Breath Sounds Implantable Cardiac Device Does patient have a Pacemaker or an ICD?: No Airway Exam Known Difficult Airway: No Mallampati Class: 2 Mouth Opening: Normal (> 3cm) Thyromental Distance: Greater than 3 cm Neck Range of Motion: Full ROM Neck Circumference: Normal Teeth Condition: Normal Dentition ASA Classification ASA Score: ASA 2 Emergency Case?: No NPO Status NPO Status: NPO Clears >2 hours, Solids >8 hours Anesthesia Plan Resuscitation Status: Full Code Anesthesia Technique: General Anesthesia Airway Planned: Natural Airway Monitors Used: Standard Monitors Preoperative Comments:: 64 yo female for colo. Family history of anesthesia complications - daughter ? arrested and transferred to [facility]. multiple others in her family have had anesthesia without issues. . Sig PMHx: HTN, GERD, hep c (treated), never smoker, occ etoh. stress test: no ekg evidence of ischemia. perfusion is normal, EF 71%. Previous Anes: - colo x 2, prop, natural airway, no issues.
[2024-06-07 09:27] VITALS: BP 159/84; PULSE 98; RESP 16; TEMP 36.4; O2SAT 97
[2024-06-07] MEDS: Normal Saline Flush 10 ML SYR IVP (09:42)
[2024-06-07 10:10] VITALS: BMI 37.5
--- NOTE | 2024-06-07 10:52 | BOWEL_PTH ---
PATIENT: Amalia Barker LOC: [facility] U#:[id number] AGE/SX: 64/F ROOM: RE06/07/[address]: Bri Hung : 1960 BED: DIS: 06/07/2024 SPEC #: [id number] RECD: 06/07/24 12:56 STATUS: GABRIELLE REJun #: [id number] REX: 06/07/24 10:[address]: Bri Hung DEPT: Surgical Specimen RECD BY: Selene Decker ENTERED: 06/07/24 12:56 SP TYPE: Bowel OTHR DR: Marilyn Stacy, [facility] SUPERVISOR Tissues: 1 - BIOPSY BOWEL 2 - BIOPSY BOWEL Procedures: GROSS AND MICRO LEVEL 4 IMMUNOPEROXIDASE STAIN Comments: [id number]
[2024-06-07 11:09] VITALS: BP 92/73; PULSE 84; RESP 16; TEMP 36; O2SAT 98
--- NOTE | 2024-06-07 11:18 | W.ANESPOSTOP ---
Postoperative Evaluation Date, Time and Location Date Performed: 06/07/24 Time Performed: 11:18 Patient Location: Day Surgery Unit Vital Signs Most Recent Imported Vital Signs: Most Recent Vital Signs Temp Pulse Resp BP Pulse Ox 36.0 C L 84 16 92/73 L 98 06/07/24 11:09 06/07/24 11:09 06/07/24 11:09 06/07/24 11:09 06/07/24 11:09 Pain Score Most Recent Pain Score: Most Recent Pain Score Pain Level 0 06/07/24 11:09 Assessment Mental Status: Awake (Alert & Oriented to Patient Baseline) Airway and Respiratory Function: Patent airway with normal (patient baseline) respiratory exam Cardiovascular Function: Hemodynamically Stable Hydration Status: Adequately Hydrated Nausea & Vomiting: No Nausea or Vomiting Pain: Pt. Denies Any Pain Peripheral Nerve Block: Patient did not receive a nerve block
[2024-06-07 11:42] VITALS: BP 131/75; PULSE 77; RESP 14; TEMP 36; O2SAT 98
== END 2024-06-07 12:00 | disposition home or self-care (01) ==
LOC: SUR 08:43
PROVIDERS: PCP Nurse Practitioner Family; Visit Provider Surgery
PROC: 0DJD8ZZ Inspection of Lower Intestinal Tract, Via Natural or Artificial Opening Endoscopic (ICD-10-PCS; CPT 45378; principal; 2024-06-07 10:45)
DX: I10 Essential (primary) hypertension (principal); D12.0 Benign neoplasm of cecum; Z12.11 Encounter for screening for malignant neoplasm of colon
CPT/HCPCS: 45380; 88305; 88361; J2704

== ENCOUNTER 2024-07-04 13:41 | Outpatient (REF) | payer BC, SELFPAY ==
--- NOTE | 2024-07-04 13:45 | SKI_PTH ---
PATIENT: Amalia Barker LOC: [facility] U#:[id number] AGE/SX: 64/F ROOM: RE07/04/[address]: Bri Hung : 1960 BED: DIS: 07/04/2024 SPEC #: [id number] RECD: 07/04/24 17:11 STATUS: GABRIELLE NESBITT #: [id number] REX: 07/04/24 13:[address]: Bri Hung DEPT: Surgical Specimen RECD BY: Selene Decker ENTERED: 07/04/24 17:13 SP TYPE: RAÚL JENSEN DR: Marilyn Stacy, [employer] Tissues: 1 - SKIN BIOPSY(SHAVE/PUNCH) Procedures: GROSS AND MICRO LEVEL 4 Comments: [id number]
== END 2024-07-04 13:42 | disposition home or self-care (01) ==
LOC: LBN 13:41
PROVIDERS: PCP Nurse Practitioner Family; Visit Provider Surgery
DX: L98.9 Disorder of the skin and subcutaneous tissue, unspecified (principal); L91.8 Other hypertrophic disorders of the skin
CPT/HCPCS: 88305

== ENCOUNTER 2025-01-03 01:11 | Outpatient (CLI) | payer BC, SELFPAY ==
[2025-01-03 13:11] LABS: ALT 30 U/L (14-59); AST 21 U/L (15-37); Alkaline Phosphatase 68 U/L (46-116); Anion Gap 8.6 mmol/L (3-11); BUN 16 mg/dL (7-18); Bilirubin, Total 0.4 mg/dL (0.2-1.0); CO2 29.4 mmol/L (21.0-32.0); CREATININE 0.9 mg/dL (0.55-1.02); Calcium 9.5 mg/dL (8.5-10.1); Calculated LDL 136 mg/dL (<100); Chloride 102 mmol/L (98-107); Cholesterol 215 mg/dL (<200); Estimated GFR 70.51 (mL/min/1.73m2); Glucose 116 mg/dL (74-106); HDL Cholesterol 58 mg/dL (>or=50); Sodium 140 mmol/L (136-145); TSH (W/Ref FT4) 2.07 uIU/mL (0.36-3.74); Total Protein 7.7 g/dL (6.4-8.2); Triglyceride 105 mg/dL (<150)
[2025-01-03 13:12] LABS: Hemoglobin A1C 5.7 % (<5.7)
== END 2025-01-03 01:12 | disposition home or self-care (01) ==
LOC: LOS 01:11
PROVIDERS: PCP Nurse Practitioner Family; Visit Provider Nurse Practitioner Family
DX: Z00.00 Encounter for general adult medical examination without abnormal findings (principal); I10 Essential (primary) hypertension; R73.03 Prediabetes; E66.9 Obesity, unspecified; K21.9 Gastro-esophageal reflux disease without esophagitis; D12.6 Benign neoplasm of colon, unspecified
CPT/HCPCS: 36415; 80053; 80061; 83036; 84443